=== PATIENT | male | born 1955 ===

== ENCOUNTER 2016-10-15 18:45 | Emergency (ER) | payer SELFPAY ==
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
[2016-10-16 00:12] VITALS: BP 151/87
== END 2016-10-16 00:20 | disposition home or self-care (01) ==
LOC: ED 18:45
DX: Z04.3 Encounter for examination and observation following other accident (principal); V89.2XXA Person injured in unspecified motor-vehicle accident, traffic, initial encounter; Y93.9 Activity, unspecified; Y99.9 Unspecified external cause status; Y92.410 Unspecified street and highway as the place of occurrence of the external cause
CPT/HCPCS: 99282